=== PATIENT | female | born 1950 | race Caucasian/White ===

== ENCOUNTER 2020-06-25 15:27 | Emergency (ER) | payer OTHER, BC ==
[~2020-06-25] VITALS: Ht 152.4 cm; Wt 49.9 kg
[~2020-06-25 15:27] MED LIST: ACTOS 45 MG45 M2 PO; ALPRAZOLAM XR3 MG PO; AMOX TR-K CLV1 EAC3 PO; FENOFIBRATE160 MG PO; OLANZAPINE ODT5 MG PO; OXYBUTYNIN 5 MG5 M2 PO; PHENTERMINE HCL30 MG PO; SEROQUEL 25 MG25 MG PO; SYNTHROID137 MC1 PO; TRULICITY0.75 MG/0. SUBQ; VENLAFAXINE HCL75 M2 PO; ZESTRIL10 MG PO
[2020-06-25 21:51] VITALS: BP 151/77
== END 2020-06-25 22:39 | disposition still patient (30) ==
LOC: ER 15:27
DX: U07.1 COVID-19 (principal); F99 Mental disorder, not otherwise specified; R41.0 Disorientation, unspecified; E11.9 Type 2 diabetes mellitus without complications; Z90.89 Acquired absence of other organs; Z88.8 Allergy status to other drugs, medicaments and biological substances; Z79.899 Other long term (current) drug therapy

== ENCOUNTER 2020-06-25 16:57 | Inpatient (IN) | payer OTHER, BC ==
[~2020-06-25] VITALS: Ht 154.9 cm; Wt 94.3 kg
[2020-06-25 22:58] VITALS: BP 150/72
--- NOTE | 2020-06-26 02:04 | NUR ---
ADMIT NOTE: RECIEVED PT VIA GURMANISHA FROM ED, PT CALM COOPERATIVE ATTEMTED HAVE PT STAND TO PIVOT TO BED, PT WAS UNABLE TO DO SO, HAD TO HAVE 2 PEOPLE ASSISTTO GET IN BED. PT ABLE TO ANSER SIMPLE QUESTION, BUT THE REMINDER QUESTION WAS OBTAINED FROM RECORDS FROM [facility]. IV ;[facility] NOTIFIED, AWAQITING ORDERS. BED ALRALM ON DUE PT ATTEMPTING TO CLIMB OUT OF BED.WILL CONTINUE TO MONTIOR AND REPORT CHANGES.
[2020-06-26 04:10] VITALS: BP 162/85
[2020-06-26 06:36] LABS: CALCIUM 8.9 mg/dL (8.5-10.1); CREATININE 1.2 mg/dL (0.6-1.0); POTASSIUM 3.6 mmol/L (3.5-5.1)
[2020-06-26 07:45] VITALS: BP 161/105
[2020-06-26 15:20] VITALS: BP 129/59
--- NOTE | 2020-06-26 19:19 | NUR ---
ASSUMED PATIENT CARE AT 0700. ALERT. CONFUSED. NO DISDRESS NOTED. SLOWLY TOWARDS POC GOLAS.
[2020-06-26 19:40] VITALS: BP 114/45
[2020-06-27 03:42] VITALS: BP 115/59
--- NOTE | 2020-06-27 03:48 | NUR ---
ASSUMED CARE OF PT. PT A&OX3. SITTING IN CHAIR UP WITH ASSISTX1 TO THE BSC. PT HAD A HUGE BM THIS SHIFT. EVENING MEDS GIVEN. BSG CHECKED AND INSULIN GIVEN. IV INTACT WITH FLUIDS INFUSING. PT ON RA. TRAZADONE GIVEN FOR SLEEP. NO SIGNS OF AGITATION PT CALLS TO LET NEEDS KNOW. WILL CONT TO MONITOR.
[2020-06-27 07:32] VITALS: BP 115/63
--- NOTE | 2020-06-27 07:36 | EKG ---
[place] [address] [facility] [place] [address] ELECTROCARDIOGRAM REPORT Name: JENNIFER TREVINO Room #: 360- ADM IN M.R.#: [id number] Admission: 06/25/20 Attend Phys: Inga Lagunas MD Discharge: Date of : 52 Report #: [id number] [facility] Test Date: 2020-06-27 Test Time: 07:23:38 Pat Name: JENNIFER TREVINO Department: Room: 360 Gender: F Switch Repairer: JESSICA : 1950 Requested By: Inga Lagunas Order Number: [id number] MD: Magdi Carlin Measurements Intervals [place] Rate: 82 P: 30 MN: 161 QRS: -7 QRSD: 89 T: 18 QT: 380 QTc: 444 Interpretive Statements Sinus rhythm Abnormal R-wave progression, early transition No previous ECG available for comparison Electronically Signed On 06-27-2020 7:36:11 HIDE TRIMMER by Magdi Carlin [email or web address] <ELECTRONICALLY SIGNED> By: Magdi Carlin MD, [facility] 06/27/20 0736 2 Magdi Carlin MD, [facility] /EPI
[2020-06-27 07:37] VITALS: BP 143/57
[2020-06-27 13:59] LABS: HEMATOCRIT 27.9 % (37.0-47.0); HEMOGLOBIN 8.7 gm/dL (12.0-15.0); MCH 29.1 pg (26.0-34.0); MCHC 31.2 g/dL (28.0-37.0); MCV 93.2 fL (80.0-100.0); RBC 2.99 mil/uL (4.20-5.00); RDW 18.3 % (10.5-14.5); WBC 5.8 thou/uL (4.0-11.0)
[2020-06-27 14:03] LABS: CALCIUM 8.5 mg/dL (8.5-10.1); CREATININE 1.2 mg/dL (0.6-1.0); MAGNESIUM 1.6 mg/dL (1.8-2.4); POTASSIUM 4.1 mmol/L (3.5-5.1)
[2020-06-27 15:38] VITALS: BP 122/61
--- NOTE | 2020-06-27 16:35 | NUR ---
SW attempted to call Pt's daughter Debra Ortega, . Farhat unable to leave a voice message. SW team will follow up
--- NOTE | 2020-06-27 17:49 | NUR ---
ASSUMED PATIENT CARE AT 0700. ALERT TO SELF. NO DISDRESS NOTED. VSS. SLOWLY TOWARDS POC GOALS.
[2020-06-27 21:59] VITALS: BP 128/67
[2020-06-28 05:18] VITALS: BP 120/65
[2020-06-28 05:56] LABS: HEMATOCRIT 26.5 % (37.0-47.0); HEMOGLOBIN 8.5 gm/dL (12.0-15.0); MCH 29.2 pg (26.0-34.0); MCV 91.3 fL (80.0-100.0); RBC 2.91 mil/uL (4.20-5.00); RDW 17.7 % (10.5-14.5); WBC 5.8 thou/uL (4.0-11.0)
[2020-06-28 06:08] LABS: CALCIUM 8.5 mg/dL (8.5-10.1); CREATININE 1.2 mg/dL (0.6-1.0); MAGNESIUM 1.6 mg/dL (1.8-2.4); POTASSIUM 3.5 mmol/L (3.5-5.1)
[2020-06-28 07:20] VITALS: BP 100/47
[2020-06-28 15:17] VITALS: BP 116/55
--- NOTE | 2020-06-28 17:22 | NUR ---
ASSUMED PATIENT CARE AT 0700. ALERT TO SELF. NO DISDRESS NOTED. SLOWLY TOWARDS POC GOALS.
--- NOTE | 2020-06-28 17:46 | NUR ---
SW was unable to complete assessment with the Pt. Sw was able to complete assessment with the Pt's daughter Marcelo Whelan, .
--- NOTE | 2020-06-28 19:20 | NUR ---
PROGRESSING TOWARDS POC GOALS.
[2020-06-28 19:50] VITALS: BP 96/48
--- NOTE | 2020-06-29 05:02 | NUR ---
LAB CALLED WITH COVID+ RESULT AT 0500. FOLLOW PROTOCOL. PT IS MAX ASSIST AND UNSTABLE ON FEET. MOOD OF PT WAS ELATION THEN SADNESS. PT HAD BM IN CHAIR WHEN TRANSFERRING PT BACK TO BED. POC WITH IVF D5 GTT. PO MEDICATIONS ARE TOLERATED WELL.
[2020-06-29 05:03] VITALS: BP 106/54
[2020-06-29 05:33] LABS: HEMATOCRIT 29.1 % (37.0-47.0); HEMOGLOBIN 9.3 gm/dL (12.0-15.0); MCH 29.3 pg (26.0-34.0); MCHC 31.9 g/dL (28.0-37.0); MCV 91.9 fL (80.0-100.0); RBC 3.16 mil/uL (4.20-5.00); RDW 17.8 % (10.5-14.5)
[2020-06-29 06:07] LABS: CALCIUM 8.7 mg/dL (8.5-10.1); CREATININE 1.2 mg/dL (0.6-1.0); MAGNESIUM 1.6 mg/dL (1.8-2.4); POTASSIUM 3.8 mmol/L (3.5-5.1)
[2020-06-29 07:30] VITALS: BP 146/56
[2020-06-29 16:15] VITALS: BP 111/74
--- NOTE | 2020-06-29 19:14 | NUR ---
HAS BEEN PLEASANT WITH CARES. NO COMPLAIN VOICED. WILL CONT WIT PLAN OF CARES.
[2020-06-29 20:59] VITALS: BP 137/56
--- NOTE | 2020-06-30 04:55 | NUR ---
PT TRANSFERRED TO RM 450 IN GOOD GONDITION. VSS . UNLABORED ON RA. PROGRESSING WELL TOWARDS D/C GOALS.
--- NOTE | 2020-06-30 05:00 | NUR ---
Pt. arrived to the unit accompanied by 3 [employer] staff. She is alert, but pleasantly confused.
[2020-06-30 05:38] LABS: HEMATOCRIT 26.5 % (37.0-47.0); HEMOGLOBIN 8.5 gm/dL (12.0-15.0); MCH 29.7 pg (26.0-34.0); MCHC 32.1 g/dL (28.0-37.0); MCV 92.3 fL (80.0-100.0); RBC 2.87 mil/uL (4.20-5.00)
[2020-06-30 05:46] LABS: CALCIUM 8.8 mg/dL (8.5-10.1); MAGNESIUM 1.8 mg/dL (1.8-2.4); POTASSIUM 3.6 mmol/L (3.5-5.1)
[2020-06-30 07:28] VITALS: BP 134/62
--- NOTE | 2020-06-30 13:56 | NUR ---
CONNOR spoke to pt's dtr Summer inquiring about getting the DPOA paperwork. Summer reports she did get the document from her father and will be able to scan and email it to CONNOR Sun on Thursday when she returns to work. CONNOR confirmed dtr had the correct email address. CONNOR team will continue to monitor.
--- NOTE | 2020-06-30 17:48 | NUR ---
Assumed pt care this am, vs stable. Has hesitation going back up to [facility]. Would get confused at times but can be redirected. Blood sugar checks done, medications are given as per emar. POC followed with no signs or verbalization of distress noted. To be transferred back to [facility] tranferring to room 209, report given at bedside.
[2020-06-30 18:52] VITALS: BP 134/62
--- NOTE | 2020-06-30 18:57 | NUR ---
1845 PATIENT TRANSFER FROM [facility] DR FROST HAS BEEN FOLLOWING PATIENT WHILE ON MEDICAL FLOOR. PATIENT PLEASANT COPERATIVE CALM PATIENT ORIENTED TIMES 4. PATIENT ABDOMEN ROUND SOFT BOWEL SOUNDS PRESENT LUNGS CLEAR PATIENT DENIES SI/HI/AH/VH AT PRESENT. WILL CONTINUE TO MONITOR PATIENT FOR SAFETY AND BEHAVIORS.
[2020-06-30 19:34] VITALS: BP 107/56
--- NOTE | 2020-07-01 05:11 | NUR ---
Assumed care of pt @ 1900. Pt calm et cooperative this shift. Took medications whole without difficulty. Blood sugar 291 @ HS et was given 6u of Lispro per sliding scale. Unable to assess ambulation as pt remained bedridden this shift. VSWNL. Health assessment with no abnormalities noted this shift. Denies SI/HI/AVH at present time. Perseverating over no TV or radio in room et when she will be removed from this unit. Isolated in room most of shift. Currently resting in bed with eyes closed. Will continue to monitor per unit protocol.
[2020-07-01 06:39] LABS: HEMATOCRIT 27.3 % (37.0-47.0); HEMOGLOBIN 8.7 gm/dL (12.0-15.0); MCH 29.4 pg (26.0-34.0); MCHC 31.9 g/dL (28.0-37.0); MCV 92.3 fL (80.0-100.0); RBC 2.96 mil/uL (4.20-5.00); RDW 18.6 % (10.5-14.5)
[2020-07-01 06:43] LABS: CREATININE 1.2 mg/dL (0.6-1.0); MAGNESIUM 1.7 mg/dL (1.8-2.4)
[2020-07-01 07:00] VITALS: BP 137/45
[2020-07-01 09:12] VITALS: BP 137/72
--- NOTE | 2020-07-01 10:37 | NUR ---
1030 RESUMMED CARE FROM OVERNIGHT SHIFT THIS AM, PATIENT IN ROOM QUIET. PATIENT ATE BREAKFAST TOOK MEDICATION WITHOUT INCIDENCE, PATIENT HAD A LARGE BOWEL MOVEMENT ALL OVER BED. PATIENT WAS GIVEN A SHOWER AND LINENS CHANGED PATIENT ENCOURAGED TO HELP HERSELF MORE. PATIENT IN WC IN DAYROOM INTERRACTING IN GROUP. PATIENT DENIES SI/HI/AH/VH AT PRESENT PATIENTS ABDOMEN SOFT ROUND BOWEL SOUNDS. PATIENTS LUNGS CLEAR PATIENT ORIENTED TIMES 3 WILL CONTINUE TO MONITOR PATIENT FOR SAFETY AND BEHAVIORS.
[2020-07-01 19:45] VITALS: BP 128/46
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
[2020-07-02 07:30] VITALS: BP 152/53
[2020-07-02 16:45] LABS: URINE BILIRUBIN NEGATIVE (Negative); URINE BLOOD TRACE (Negative); URINE COLOR YELLOW; URINE GLUCOSE-RANDOM* 3+ (Negative); URINE KETONES NEGATIVE (Negative); URINE NITRITE-REFLEX NEGATIVE (Negative); URINE PROTEIN (DIPSTICK) NEGATIVE (Negative); URINE SPECIFIC GRAVITY 1.015 (1.005-1.035); URINE UROBILINOGEN 0.2 E.U./dl (0.2-1.0)
[2020-07-02 16:49] LABS: URINE CLARITY SL HAZY; URINE LEUKOCYTES-REFLEX 2+ (Negative)
[2020-07-02 16:52] LABS: SQUAMOUS 0-3 Few /LPF (0-3); URINE RBC 0-2 Rare /HPF (0-2); URINE WBC-REFLEX >25 Many /HPF (0-5)
[2020-07-02 16:53] LABS: BACTERIA-REFLEX 1-9 Few /HPF (None Seen); CASTS None Seen /LPF (None Seen); CRYSTALS None Seen /LPF (None Seen); YEAST-REFLEX Present (None Seen)
--- NOTE | 2020-07-02 17:03 | NUR ---
CONNOR recieved a email from Summer with the DPOA paperwork. CONNOR put a copy in the Pt's chart.
--- NOTE | 2020-07-02 17:04 | NUR ---
CONNOR contact Briseyda with [facility] to request a screening for [place] Medicaid. CONNOR emailed Briseyda a copy of the Pt's certificate and DPOA paper work. Briseyda stated she called DPOA to complete screening and Pt may not qualify due to having over 75,000 in assets.
--- NOTE | 2020-07-02 18:02 | NUR ---
Alert and orientated X4. Slow to answer some questions. Denies SI/HI. Breath sounds clear t/o. Reg HR auscultated. Color pink with brisk capillary refill and palpable peripheral pulses. Incontinent of yellow urine per commode. OR NURSE MANAGER reported foul smelling urine in afternoon. Dr. Weston notified. Straight cath UA done per order, cloudy yellow urine obtained. Active bowel sounds over soft, rounded abdomen. Sat in gris chair most of day. Is able to stand and transfer with assist X1. BG 172-312, insulin given per sliding scale. Very concerned about missing rosary, found after search of room. Frequent mentions of relgious associated topics, does not want to be seperated from her bible/rosary.
[2020-07-02 19:43] VITALS: BP 108/50
--- NOTE | 2020-07-03 03:56 | NUR ---
07-02-20 CARE TRANSFERRED 1900 OBSERVED PT SITTING IN GERICHAIR IN DAY ROOM. PT AAOX2, VSS, RR EVEN AND NONLABORED ON RA. PT DENIES PAIN AND SI/HI. PT PRESENTS CALM AND COOPERATIVE THROUGHOUT NURSING ASSESSMENT. DURING MEDICATION ADMIN PT HAD NO DIFFICUTES. ZERO S/S OF ACUTE DISTRESS NOTED, PT WILL CONTINUE TO BE MONITOR PER [facility] PROTOCOL.
[2020-07-03 09:18] VITALS: BP 121/56
--- NOTE | 2020-07-03 13:44 | NUR ---
Alert and orientated X4. Anxious this AM stating she wants to talk with about being discharged to a custodial. Denies SI/HI. Cooperative. Breath sounds clear. Reg HR auscultated. Color pink with brisk capillary refill and palpable peripheral pulses. +2 edema in lower legs. Yellow urine per commode. Active bowel sounds over soft, rounded abdomen. Able to stand and assist with transfer but primarily sits in gerichair. Insulin given for BG 181-182. Participating in groups.
[2020-07-03 19:30] VITALS: BP 101/78
[2020-07-03 20:00] VITALS: BP 101/78
--- NOTE | 2020-07-04 02:59 | NUR ---
PT CARE ASSUMED WITH PT IN THE ACTIVITY ROOM.PT IS ALERT AND ORIENTED X2.PT IS ACCUCHECK ACHS WITH SSI AND 6UNIT GIVEN HS.PT DENIES PAIN AND SI.PT CALM THROUGHOUT SHIFT AND REMAIN IN ACTIVITY TILL 244.PT WAS ASSISTED TO BED .PT TAKED MEDS WHOLE WITH THIN LIQUIDS WITH NI ISSUES..WILL CONTINUE TO MONITOR POC
[2020-07-04 09:28] VITALS: BP 147/57
--- NOTE | 2020-07-04 16:37 | NUR ---
PATIENT WAS IN BED ASLEEP WHEN CARE ASSUMED, ASSISTED UP TO FOR BREAKFAST BY STAFF. SHE FED SELF, APPETITE GOOD. PATIENT IS ALERT, AND ORIENTED X 3-4, ABLE TO VOICE NEED. PATIENT TOOK ALL MEDICATION WHOLE WITHOUT DIFFICULTY. SHE DENIES SUICIDAL/HOMICIDAL IDEATION, FOR DEPRESSION, SHE STATES I HAVE BEEN DEPRESSED FOR A LONG TIME, I AM ANXIOUS ALL THE TIME". PATIENT IS RELIGIOUSLY PREOCCUPIED, SINGING CONFUCIANISM SONGS, AND QUOTING BIBLE PASSAGES. PATIENT DENIES HAVING PHYSICAL PAIN, TOILETED BY STAFF. MOOD IS DEPRESSED, AFFECT IS FLAT/BLUNTED. NO S&S OF HYPER/HYPOGLYCEMIA NOTED, INSULIN GIVEN PER ORDER. NO SIGN OF ACUTE DISTRESS NOTED AT THIS TIME, WILL MONITOR FOR SAFETY.
[2020-07-04 20:09] VITALS: BP 127/52
[2020-07-04 21:00] VITALS: BP 127/52
--- NOTE | 2020-07-05 02:50 | NUR ---
PATIENT WAS UP IN ANH CHAIR AT 1900 AND CERTIFIED ENERGY MANAGER TOOK PATIENT TO ROOM WHEN ASKED BY PATIENT TO USE THE BSC. PATIENT WAS ASSIST X 2 TO BSC WITH WALKER AND GAIT BELT USED TO TRANSFER. PATIENT IS STRONGER TONIGHT THAN SHE WAS WHEN I HAD HER 3 NIGHTS AGO. WITH HELP SHE STOOD AND PIVOTED HERSELF WITH WALKER TO SITTING POSITION ON BSC. SHE HAD LARGE FORMED BM TONIGHT. SHE ASKED IF SHE COULD GET IN WC INSTEAD OF ANH CHAIR. WC PROVIDED AND PATIENT WAS ABLE TO MANEUVER WC AROUND THE UNIT. SHE SAT UP AT A TABLE COLORING WITH MARKERS. SHE HAD APPLESAUCE FOR HS SNACK. HER ACCUCHECK BEFORE HS SNACK WAS 266. LISPRO 6U SQ GIVEN. PATIENT USED BSC AND VOIDED AND WAS ASSISTED TO BED AROUND 2200. SHE AWOKE AT 023O AND CALLED FOR ASSISTANCE BY BETTINA TO USE THE BSC. AT THIS TIME WHEN WALKER WAS PLACED IN FRONT OF HER AND BSC SHE SAID, "i'VE NEVER DONE THIS BEFORE. i DON'T THINK I CAN USE THIS WALKER OR GET TO THE BSC." CERTIFIED ENERGY MANAGER AND NURSE REMINDED PATIENT THAT SHE DID IT EARLIER IN THE EVENING AND DID A GREAT JOB. SHE COULD NOT RECALL IT. WITH GAIT BELT AND WALKER, 2 NURSES AND CERTIFIED ENERGY MANAGER ASSISTED PATIENT TO THE BSC. SHE WAS MORE ALERT AFTER VOIDING AND WAS ABLE TO ASSIST HERSELF MORE INDEPENDENTLY BACK TO BED WITH JUST 2 OF US TO HELP. PATIENT APPEARS TO BE SLEEPING IN BED AT THIS TIME. SIDE RAILS UP. BED IN LOW POSITION. PATIENT DENIES SI/HI/AVH. SHE IS A/0X3-4 BUT FORGETFUL. SHE ANXIOUSLY WATCHES OTHER PATIENT'S ON THE UNIT AND GOES TO THE NURSE IF SHE THINKS THE PATIENT NEEDS SOMETHING. TONIGHT SHE IS ASKING IF SHE CAN GET AN ORDER FOR NATURAL VITAMINS, COLLAGEN AND MED FOR VAGINAL ITCHING. PATIENT DOES HAVE UTI WITH YEAST IN URINE AND CURRENTLY AWAITING C&S RESULTS FOR ANTIBIOTIC. CALL PLACED TO HOSPITALIST AXLE POLISHER AND MESSAGE LEFT. AWAITING CALL BACK. PATIENT ALSO STATED THAT SHE LIKES IT HERE AND WOULD LIKE TO STAY LONGER AND ASKING IF WE CAN DECORATE HER ROOM. ROUTINE ROUNDS TO ASSESS SAFETY AND STATUS OF PATIENT.
[2020-07-05 08:33] VITALS: BP 154/50
--- NOTE | 2020-07-05 08:33 | NUR ---
PT SITTING IN DINING ROOM EATING BREAKFAST. PT TOOK MEDS WITH ENCOURAGEMENT. PT SINGS ORTHODOXY SONGS. PT LUNGS CLEAR. PT STATED SHE WANTED HER BACK SCRATCHED AND SHE HAS SOME LOWER BACK PAIN OF 7 ON 1-10 SCALE.
--- NOTE | 2020-07-05 08:38 | NUR ---
ADM TYLENOL 325MG 2 TABS PO FOR PAIN TO LOWER BACK OF 7 ON 1-10 SCALE.
--- NOTE | 2020-07-05 11:40 | NUR ---
Nutrition: pt admitted with toxic encephalopathy, recent COVID. Seen for LOS. COVID + screen is residual per ID. Good appetite eats 80-100% of meals on carb controlled diet. BG 166-271. SSI. Reports no weight change. BMI 39, obesity class 2. Pt voices no concerns related to food. Low nutrition risk.
--- NOTE | 2020-07-05 17:27 | NUR ---
PT DIDN'T WANT TO TAKE OLANZIPINE DUE TO IT MAKING YOU FEEL SLEEPY. SHE STATED SHE CAN'T GET ANYWHERE WITH THAT MED.
--- NOTE | 2020-07-05 17:42 | NUR ---
PT DID TAKE OLANZAPINE 5MG AT THIS TIME. SHE JUST WANTED TO KNOW ABOUT HER MEDS AND SHE SAID SHE GOT COVID AND GOT SURGERY FROM IT. SHE SAID SHE IS NOT THE SAME PERSON SINCE THE COVID.
[2020-07-05 19:45] VITALS: BP 117/52
--- NOTE | 2020-07-06 04:44 | NUR ---
Assumed care of patient this pm shift. Patient sitting in mileu in a wheelchair. Patient is alert and oriented to self, place and time. Patient states that she misses her pets and human touch. Appears sad. Patient asked if it would be alright to have a pepe bear or stuffed animal to sleep with. Rn stated that it would depend on hospital protocol. Patient takes medications whole with thin fluids. Ambulates with the assistance of a wheel chair. Falls precautions in place. No negative behaviors seen this shift. Assessment shows no signs of acute distress. We will continue to monitor per hospital policy.
[2020-07-06 08:11] VITALS: BP 110/63
[2020-07-06 08:30] VITALS: BP 110/63
--- NOTE | 2020-07-06 08:45 | NUR ---
PT SITTING OUT IN DINING ROOM THIS AM. PT ENCOURAGED TO TAKE HER MEDS. PT TOLERATING DIET. PT IN W/C AND CAN WHEEL AROUND HERSELF. PT STATED SHE HAS SOME PAIN TO HER LEGS, PT HAD TYLENOL EARLY THIS AM. PT STATED SHE ISN'T STRONG SHE WAS BEFORE SUCH WALKING.
--- NOTE | 2020-07-06 14:41 | NUR ---
PT STATED SHE LOST ALL HER STUFF. PT SAID ALL SHE HAS IS HER GLASSES AND THATS IT. THIS CIGAR MAKING SUPERVISOR MENTIONED MAYBE HER STUFF IS IN THE LOCKER, SHE SAID SHE HASN'T SEE IT. PT WANTING A SHOWER TODAY.
--- NOTE | 2020-07-06 15:48 | NUR ---
PT FINISHED HER SHOWER AND IS STANDING UP IN DINING ROOM WITH W/C BEHIND HER.
[2020-07-06 20:14] VITALS: BP 121/55
--- NOTE | 2020-07-07 06:19 | NUR ---
ASSESSMENT: PT REMAIN ALERT AND ORIENT TIMES THREE. UP IN WC IN THE DAY ROOM DURING THE BEGINNING OF THE SHIFT. PRN TRAZADONE AND OLANZAPINE GIVEN PER REQUEST. TOLERATING PO INTAKE. BLOOD SUGAR 289, TREATED WITH 3 UNITS OF LISPRO. INCONT TO URINE. NO BM THIS SHIFT. UP IN DAY ROOM THIS AM. NO COMPLAINTS THIS AM. LAST NIGHT PT DID INQUIRE OF HER DISCHARGE DATE AND TIME. WILL CONTINUE TO MONITOR.
[2020-07-07 09:56] VITALS: BP 137/72
--- NOTE | 2020-07-07 11:51 | NUR ---
1145 RESUMMED CARE FROM OVERNIGHT SHIFT THIS AM, PATIENT SITTING IN DAY ROOM SINGING TO SELF. PATIENT ORIENTED TIMES 4 PATIENT CALM COOPERATIVE WANTS TO GO HOME. PATIENTS ABDOMNEN SOFT ROUND BOWEL SOUNDS PRESENT LUNGS CLEAR; PATIENT DENIES SI/HI/AH/VH AT PRESENT. PATIENT PARTICIPATED IN GROUPS WILL CONTINUE TO MONITOR PATIENT FOR SAFETY AND BEHAVIORS.
[2020-07-07 19:41] VITALS: BP 112/60
--- NOTE | 2020-07-08 02:44 | NUR ---
PT ALERT AND ORIENTED X 3. IN RECLINER IN DINING ROOM MOST OF EVENING. ASSISTED TO BSC AND THEN TO BED AT HS WITH ASSIST X 1. BLOOD SUGAR 324 AT HS. INSULIN GIVEN ORDERED. TRAZADONE GIVEN AT HS FOR SLEEP. PT REFUSED TO TAKE MEDS IN DINING ROOM. STATED I HAVE TO TAKE THEM WHEN I GET INTO BED OR IT WILL KNOCK ME OUT. MEDS GIVEN IN ROOM WITH WATER WITHOUT DIFFICULTY. PT DENIES SI/HI/AVH. PT DENIES PAIN OR DISCOMFORT. BED ALARM ON FOR SAFETY. PT SLEEPING ON ROUNDS.
[2020-07-08 09:36] VITALS: BP 153/50
--- NOTE | 2020-07-08 11:44 | NUR ---
1130 RESUMMED CARE FROM OVERNIGHT SHIFT THIS AM, PATIENT SITTING IN DAY ROOM IN . PATIENT ATE BREAKFAST TOOK MEDICATION WITHOUT INCIDENCE; PATIENT DENIES SI/HI/AH/VH AT PRESENT. PATIENT ORIENTED TIMES 4 PATIENTS ABDOMEN SOFT ROUND BOWEL SOUNDS PRESENT. PATIENTS LUNGS CLEAR PATIENT PARTICIPATED IN GROUPS NO BEHAVIORS. PATIENT ENCOURAGED TO TRY TO MOVE AROUUND MORE AND HELP HERSELF MORE. WILL CONTINUE TO MONITOR PATIENT FOR SAFETY AND BEHAVIORS.
[2020-07-08 18:48] VITALS: BP 122/40
[2020-07-08 20:15] VITALS: BP 128/46
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
[2020-07-09 09:26] VITALS: BP 109/56
--- NOTE | 2020-07-09 10:53 | NUR ---
RT Progress Note- Malgorzata has been active in recreation therapy groups since her admission to [facility]. She does require ocassional refocusing and redirection as she begins to sing out loud or ramble while others are contributing to group. She has shown improved independence and often speaks of wanting to go to a senior care. RT staff note ocassional passive comments about people she reffers to as "they" doing various things such as pushing a button to laugh, "like they're suppose to." She also remains religiously focused. Staff will continue to encourage her participation.
[2020-07-09 11:08] VITALS: BP 109/56
--- NOTE | 2020-07-09 11:18 | NUR ---
ASSUMED CARE AT 0700 THIS MORNING. PT. UP, DRESSED AND IN THE DINING ROOM. SHE IS QUIET AND NOT TALKING MUCH. SHE IS PLEASANT AND COOPERATIVE WITH MEDICATIONS, AND EATING. SHE REMAINED ON THE UNIT AFTER THE MEAL. SHE WAS PRESENT FOR MORNING GROUP.
--- NOTE | 2020-07-09 16:51 | NUR ---
SW sent referral to the following [facility]
[2020-07-09 19:37] VITALS: BP 124/39
[2020-07-09 20:30] VITALS: BP 124/49
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
[2020-07-10 07:30] VITALS: BP 98/57
--- NOTE | 2020-07-10 13:19 | NUR ---
CONNOR recieved a call from Anival Zapata at the [facility], informing they could accept the Pt. CONNOR did informed Pt's daughter, Yuliana, of this information. Yuliana indicates she would prefer placement with [facility]. At this time there has been no decision from [facility]. CONNOR will continue to follow
--- NOTE | 2020-07-10 18:10 | NUR ---
Alert and orientated to person and place. Able to state month and year but not day. States she is tired, denies SI/HI. Tearful at dinner d/t way she was served. Calm, cooperative and compliant. Breath sounds clear. Reg HR auscultated. Color pink with brisk capillary refill and palpable peripheral pulses. +3 edema in lower extremities. Continent of yellow urine per commode. Large brown formed stool. Active bowel sounds over soft, rounded abdomen. Participating in groups. Currently sitting at table doing puzzles and watching TV.
[2020-07-10 19:29] VITALS: BP 110/42
--- NOTE | 2020-07-11 04:32 | NUR ---
07-10-19 CARE TRANSFERRED 1899 OBSERVED PT SITTING IN DAY ROOM IN [facility]. LATER PT AAOX2, VSS, RR EVEN AND NONLABORED ON RA. PT REPORTS THAT SHE MISSES HER AND WANTS TO GO HOME. PT PRESENTS SAD AND DEPRESSED. PT DENIES PAIN AND SI/HI/VAH. ZERO S/S OF ACUTE DISTRESS, PT WILL CONTINUE TO BE MONITOR PER [facility] PROTOCOL.
[2020-07-11 07:50] VITALS: BP 105/42
[2020-07-11 08:30] VITALS: BP 105/42
--- NOTE | 2020-07-11 08:35 | NUR ---
PT SITTING IN ANH CHAIR THIS AM EATING BREAKFAST. PT SINGING WITH SOFTER VOICE. PT DENIES ANY PAIN AT THIS TIME. PT LUNGS CLEAR. PT TOOK MEDS WITH ENCOURAGEMENT. PT SEEMS CALM THIS AM.
--- NOTE | 2020-07-11 09:30 | NUR ---
ASSISTED PT TO BSC X1 ASSIST. PT ABLE TO TRANSFER FROM ANH CHAIR TO BS. PT VOIDED AND HAD LARGE SOFT BM. PT FAUSTO BROKE AND UPSET ABOUT IT, THIS CLIN ASST FIXED ROSARY AND SHE WAS AFRAID SHE WOULD NOT GET IT BACK.
--- NOTE | 2020-07-11 11:21 | NUR ---
CONNOR recieved a call from Tonie at [facility] concerning admission. [facility] has accepted the Pt. Discharge is set for 07/12/20 @1 pm. Pt will be transported via express transport. Pt's daughter, Yuliana Robertson, was notified.
[2020-07-11 18:59] VITALS: BP 121/37
--- NOTE | 2020-07-12 02:10 | NUR ---
Assumed care for pt at 1900. Pt up in dining room at start of shift. Pt has been calm and cooperative this shift. Pt is pleasant. Pt is compliant with HS assessment and medications. Pt takes medications whole with thin liquids. Pt is accucheck at HS and blood sugar was 244. Pt received 10 units of Humalog per sliding scale orders. Pt affect is flat and presents being sad/depressed. Pt denies SI/HI. Pt denies any pain. Pt went to bed early in shift and has been resting quietly. Pt is an assist x 1 with transfers. Pt assisted to bedside commode before bed and at 0145. Pt has hairston at bedside and will call for assistance. Pt is A&O x 3. Pt is on 12 minute rounding checks. Will continue to monitor for changes in behaviors and safety. Pt is set to discharge back to [facility] on 07/12/20 at 1pm.
[2020-07-12 10:30] VITALS: BP 112/55
--- NOTE | 2020-07-12 10:36 | NUR ---
Nutrition: Pt seen for LOS. Admitted with toxic encephalopathy, recent COVID (+). Pt with good appetite, eating 75-100% of meals. Last wt noted 06/30, appeared stable. No new wt to assess at this time. No c/o GI distress. Skin remains intact. Pt remains low nutritional risk at this time.
[2020-07-12] MEDS ORDERED: ENOXAPARIN40 MG/0.1 SUBQ (11:23)
[2020-07-12] MEDS ORDERED: DEPAKOTE 250MG250 M1 PO (11:24)
[2020-07-12] MEDS ORDERED: FENOFIBRATE160 MG PO ×2 (11:24→11:29)
[2020-07-12] MEDS ORDERED: TRAZODONE HCL100 MG PO (11:24)
[2020-07-12] MEDS ORDERED: TRULICITY0.75 MG/0. SUBQ (11:25)
[2020-07-12] MEDS ORDERED: OLANZAPINE ODT5 MG PO ×2 (11:25)
[2020-07-12] MEDS ORDERED: SYNTHROID137 MC1 PO (11:26)
[2020-07-12] MEDS ORDERED: OXYBUTYNIN 5 MG5 M2 PO (11:28)
--- NOTE | 2020-07-12 14:05 | NUR ---
Alert and orientated X3, off on day by one day. Denies SI/HI. Delusional at times. Concerned about her broken rosary, repaired. Able to transfer self from bed to commode and then to gris chair with alot of verbal encouragement and standby assist. Breath sounds clear. Reg HR auscultated. Color pale pink with brisk capillary refill and palpable peripheral pulses. +2 nonpitting edema in lower legs. Voided large amt yellow urine and incontinent of large amt yellow urine per brief. Active bowel sounds over soft, rounded abdomen. 1100 Spoke with Yuliana Robertson via phone, co DPOA, gave verbal consent for transfer to [facility]. Also spoke with Giana Shoemaker and gave report at [facility]. 1340 Reviewed discharge instructions with pt. Transported via [employer] per with limited belongs and paperwork. No s/o distress. Left unit at 1340.
== END 2020-07-12 11:40 | DRG 885 ==
LOC: SBH → 3W 22:47 → 4W 06-30 03:48 → SBH 06-30 18:00
PROVIDERS: Internal Medicine; Nurse Practitioner Family; ADMIT Psychiatry & Neurology Psychiatry; ATTEND Psychiatry & Neurology Psychiatry
DX: F39 Unspecified mood [affective] disorder (principal); U07.1 COVID-19; N17.0 Acute kidney failure with tubular necrosis; G92 Toxic encephalopathy; E87.0 Hyperosmolality and hypernatremia; F03.91 Unspecified dementia, unspecified severity, with behavioral disturbance; E44.0 Moderate protein-calorie malnutrition; F23 Brief psychotic disorder; N30.91 Cystitis, unspecified with hematuria; E78.5 Hyperlipidemia, unspecified; E86.9 Volume depletion, unspecified; F31.9 Bipolar disorder, unspecified; D64.9 Anemia, unspecified; I87.8 Other specified disorders of veins; E83.42 Hypomagnesemia; I10 Essential (primary) hypertension; E11.42 Type 2 diabetes mellitus with diabetic polyneuropathy; E03.9 Hypothyroidism, unspecified; Z88.8 Allergy status to other drugs, medicaments and biological substances; Z68.39 Body mass index [BMI] 39.0-39.9, adult
CPT/HCPCS: 10779; 10880